=== PATIENT | female | born 1970 | race Caucasian/White ===

== ENCOUNTER 2016-10-26 03:19 | Emergency (ER) | payer BC, OTHER ==
--- NOTE | 2016-10-26 03:30 | PDOC ---
History of Present Illness - General Chief Complaint: Pain, Acute Stated Complaint: BACK PAIN RADIATING DOWN RIGHT LEG Time Seen by Provider: 10/26/16 03:29 History Source: Patient Exam Limitations: No Limitations - History of Present Illness Initial Comments: 10/26/16 03:56 This is a 46 her female who comes in with her significant other for evaluation of anxiety and unable to sleep. Patient said she was started on fentanyl 3 days ago and since starting the fentanyl she said this and was made her very anxious and then made it very difficult for her to relax and sleep. Patient said that she took the fentanyl patch off earlier this evening but still feels very anxious and has been unable to sleep all evening. Patient has a number of doctors that are managing her chronic pain that is secondary to prior injuries from over a year ago. Patient says she also has a history of PTSD secondary to the injuries and thinks that may be also contributing to it. Patient has had some anxiety and medication in the past. PAST MEDICAL HISTORY: Chronic back and leg pain PAST SURGICAL HISTORY: no significant history FAMILY HISTORY: no pertinant history SOCIAL HISTORY: Pt lives with family and is disabled MEDICATIONS: reviewed ALLERGIES: As per nursing notes Review of Systems General: No fevers or chills, no weakness, no weight loss HEENT: No change in vision. No sore throat,. No ear pain CardioVascular: No chest pain or shortness of breath Respiratory:No cough, or wheezing. Gastrointestinal: no nausea, vomitting, diarrhea or constipation, No rectal bleeding Genitourinary: No dysuria, hematuria, or frequency Musculoskeletal: No joint or muscle pain or swelling Neurologic: No headache, vertigo, dizziness or loss of consciousness Psychiatric: nor depression Skin: No rashes or easy bruising Endocrine: no increased thirst or abnormal weight change Allergic: no skin or latex allergy All other systems reviewed and normal GENERAL: The patient is awake, alert, and fully oriented, in no acute distress. HEAD: Normal with no signs of trauma. EYES: Pupils equal, round and reactive to light, extraocular movements intact, sclera anicteric, conjunctiva clear. EXTREMITIES: There is pain on palpation of the lower back, hip and upper leg laterally. There is decreased range of motion secondary to pain. Neurovascular distal is intact NEUROLOGICAL: Normal speech, normal gait. PSYCH: Normal mood, normal affect. SKIN: Warm, Dry, normal turgor, no rashes or lesions noted. 10/26/16 04:14 Patient feels better after the Xanax and is more calm and feels like she cannot go to sleep. Prescription sent to the patient's pharmacy for 10 tablets of 0.5 mg Xanax. Past History - Past Medical History Allergies/Adverse Reactions: Allergies Allergy/AdvReac Type Severity Reaction Status Date / Time hydrocodone Allergy Verified 10/26/16 03:25 oxycodone Allergy Verified 10/26/16 03:25 Home Medications: Ambulatory Orders Alprazolam [Xanax] 0.5 mg PO DAILY PRN #10 tablet MDD 2 10/26/16 Fentanyl 1 each TD DAILY 10/26/16 Gabapentin 600 mg PO DAILY 10/26/16 Tapentadol Hydrochloride [Nucynta -] 50 mg PO Q4H 10/26/16 Asthma: No Diabetes: No HTN: No - Surgical History Appendectomy: Yes - Immunization History Td Vaccination: No - Psycho/Social/Smoking Cessation Hx Anxiety: No Suicidal Ideation: No Smoking Status: No Smoking History: Never smoked Years of Tobacco Use: 0 Number of Cigarettes Smoked Daily: 0 *DC/Admit/Observation/Transfer Diagnosis at time of Disposition: Anxiety Medication adverse effect Qualifiers: Encounter type: initial encounter Qualified Code(s): T88.7XXA - Unspecified adverse effect of drug or medicament, initial encounter - Discharge Dispostion Disposition: HOME Condition at time of disposition: Stable Admit: No - Prescriptions Prescriptions: Alprazolam [Xanax] 0.5 mg PO DAILY PRN #10 tablet MDD 2 PRN Reason: Anxiety - Patient Instructions Additional Instructions: Do not take anymore of the fentanyl patches. Call your pain management doctor this morning and that your doctor know you had an adverse reaction to the fentanyl patch and you were given Xanax for the reaction. Discussed with your pain management doctor how to best manage her pain without the fentanyl. Return to the emergency department immediately with ANY new, persistent or worsening symptoms. Continue any medications as previously prescribed by your physician. You should follow up with your primary doctor as soon as possible regarding today's emergency department visit. . Please make sure your doctor reviews the results of your emergency evaluation. Thank you for coming to the Emergency Department today for your care. It was a pleasure to see you today. Please note that your evaluation is INCOMPLETE until you follow-up with your doctor.
[2016-10-26 03:41] VITALS: BP 149/88; PULSE 104; TEMP 98.2; BMI 23.8
[2016-10-26] MEDS ORDERED: ALPRAZolam 0.25 MG TABLET ONE (03:44)
[2016-10-26] MEDS ORDERED: ALPRAZolam 0.25 MG TABLET PO STA (03:46)
== END 2016-10-26 04:19 | disposition home or self-care (01) ==
LOC: FER 03:19
DX: T88.7XXA Unspecified adverse effect of drug or medicament, initial encounter (principal); X58.XXXA Exposure to other specified factors, initial encounter; Y93.89 Activity, other specified
CPT/HCPCS: 99281-25